=== PATIENT | female | born 1995 ===

== ENCOUNTER 2017-12-17 20:31 | Emergency (ER) | payer OTHER ==
--- NOTE | 2017-12-17 21:02 | UC ---
Upper Extremity HPI - HPI Summary HPI Summary: 22 y/o female presents to the urgent care c/o left pinky finger pain and laceration s/p jamming her finger w/ a door around 2000PM today. Pt has small laceration over the nail. Bleeding stopped w/ pressure. She is allergic to Sodium Benzote, so she rather wait and take some Tylenol Po she has at home. Pt is not UTD w/ the Tetanus shot. I spoke to mother over the phone and she is also unsure of Tetanus status. Pain is 6/10, but can move the finger w/o any difficulty. Pt feel mild numbness at the tip of the finger. Pt denies fever, SOB , chest pain, abdominal pain, N/V/D - History of Current Complaint Chief Complaint: UCUpperExtremity Stated Complaint: FINGER INJURY Time Seen by Provider: 12/17/17 20:47 Hx Obtained From: Patient Hx Last Menstrual Period: 12/11/17 ?: No Onset/Duration: Gradual Onset Severity Initially: Moderate Severity Currently: Moderate Pain Intensity: 6 Pain Scale Used: 0-10 Numeric Location Of Pain: Is Discrete @ - leeft small finger Character: Throbbing Aggravating Factor(s): Movement, Lifting, Other - touch Alleviating Factor(s): Rest Associated Signs And Symptoms: Positive: Numbness/Tingling - at the tip of the finger, Other - laceration over the nail Related History: Dominant Hand Right - Risk Factors Non-Orthopedic Risk Factor: Negative DVT Risk Factors: Negative Septic Arthritis Risk Factor: Negative - Allergies/Home Medications Allergies/Adverse Reactions: Allergies Allergy/AdvReac Type Severity Reaction Status Date / Time sodium benzoate Allergy Severe Vomiting Verified 12/17/17 20:49 Home Medications: Home Medications Norgestrel-Ethinyl Estradiol [Cryselle-28 Tablet] 1 tab PO DAILY 12/17/17 [ History Confirmed 12/17/17] PMH/Surg Hx/FS Hx/Imm Hx Previously Healthy: Yes - Pt denies PMHX - Surgical History Surgery Procedure, Year, and Place: hernia - Family History Known Family History: Positive: None - Pt denies FMHX - Social History Occupation: Employed Full-time Lives: With Family Alcohol Use: Daily Substance Use Type: None Smoking Status (MU): Never Smoked Tobacco Review of Systems Constitutional: Negative Skin: Bruising - left pinky finger and laceration over the nail Eyes: Negative ENT: Negative Respiratory: Negative Cardiovascular: Negative Gastrointestinal: Negative Genitourinary: Negative Motor: Negative Neurovascular: Negative Musculoskeletal: Other: - left pinky pain s/p injury Neurological: Negative Psychological: Negative Is Patient Immunocompromised?: No All Other Systems Reviewed And Are Negative: Yes Physical Exam - Summary Physical Exam Summary: Vital Signs Reviewed: Yes General: Well-Appearing, No Pain Distress, Well-Nourished female w/o any apparent distress Eyes: Positive: Conjunctiva Clear - PERRLA, EOMI ENT: Positive: Normal ENT inspection, Hearing grossly normal, Pharynx normal, TMs normal, Uvula midline Neck: Positive: Supple, Nontender, No Lymphadenopathy Respiratory: Positive: Chest non-tender, Lungs clear, Normal breath sounds, No respiratory distress Cardiovascular: Positive: RRR, No Murmur, Pulses Normal, Brisk Capillary Refill Abdomen Description: Positive: Nontender, No Organomegaly, Soft. Negative: CVA Tenderness (R), CVA Tenderness (L) Bowel Sounds: Positive: Present Musculoskeletal: Positive: Strength Intact, Other: Neurological Exam: Normal Musculoskeletal: Positive: LF hand is without obvious asymmetry or deformity when compared to the R hand. LF #5th phalanx with mild ecchymosis and swelling at the tip to the phalanx and nail w/ a discrete linear laceration at the mid area w/ mild bleeding about 0.4cm in size. .Tender to palpation. Phalanx w/o any obvious deformity. No bony crepitus. FROM of all phalanges . Motor/ sensory function of ulnar, radial, median nerves intact. Ulnar and radial pulses intact. Capillary refill intact. Psychological Exam: Normal Skin Exam: Normal Triage Information Reviewed: Yes Vital Signs: Initial Vital Signs Temp 98.6 F 12/17/17 20:40 Pulse 83 12/17/17 20:40 Resp 18 12/17/17 20:40 BP 131/92 12/17/17 20:40 Pulse Ox 99 12/17/17 20:40 Upper Extremity Course/Dx - Course Course Of Treatment: 22 y/o female presents to the urgent care c/o left pinky finger pain and laceration s/p jamming her finger w/ a door around 2000PM today. Pt has small laceration over the nail. Bleeding stopped w/ pressure. She is allergic to Sodium Benzote, so she rather wait and take some Tylenol PO she has at home. Pt is not UTD w/ the Tetanus shot. I spoke to mother over the phone and she is also unsure of Tetanus status. Pain is 6/10, but can move the finger w/o any difficulty. Pt feel mild numbness at the tip of the finger. Pt denies fever, SOB, chest pain, abdominal pain, N/V/D. Hx obtained. Left # fifth digit X-ray ordered: impression: There was no fracture, dislocation, soft tissue swelling or FB noted. Probably a finger sprain. Nail laceraion irrigated w/ sterile water and bleeding stopped w/ pressure. wound cleaned w/ iodine swabs. Skin adhesive and 2 steri-sptrips applied to close laceration. Wound covered w/ a sterile gauze. Left 5th Finger imobilzed w/ a finger splint and body tape with the #4 digit. Pt advised RICE and take Tylenol PO for pain. F/u with Orthopedic DR Melendez if not improvement of symptoms. Pt given Tetanus vaccine by nurse. Pt tolerated well IM inj.Pt's BP is elevated today advised to decrease salt in diet, monitor BP and f/u with PCP for further management. Pt understood and agreed with D/C instructions. - Differential Dx/Diagnosis Differential Diagnosis/HQI/PQRI: Contusion, Fracture (Closed), Laceration, Strain, Sprain Provider Diagnoses: 1- Left 5th phalanx pain s/p injury. 2- Left fifth nail laceration s/p injury. 3- elevated BP w/o Hx of HTN Discharge - Sign-Out/Discharge Documenting (check all that apply): Discharge/Admit/Transfer - D/C home - Discharge Plan Condition: Stable Disposition: HOME Patient Education Materials: Finger Sprain (ED), Low-Sodium Diet (ED), Steristrips (ED) Referrals: [facility] [place] PHYSICIAN REFERRAL [Outside] - 1 Week Omar Melendez MD [Medical Doctor] - 1 Week Additional Instructions: 1-Please take Tylenol PO you have at home q6-8hrs prn to alleviate pain and swelling. Keep wound dry and clean if you see any signs of infection pleas return to the urgent care for further management. 2-Please keep your finger immobilized with the splint. 3- Please f/u with Orthopedic or your PCP in 1 week is not improvement of symptoms for further evaluation and treatment. 4-Your BP is elevated today. please decrease salt in your diet, monitor BP and if it continues to be elevated please f/u with your PCP for further management - Billing Disposition and Condition Condition: STABLE Disposition: HOME
[2017-12-17] MEDS ORDERED: Tetan/Diph/Pertus SYR(Tdap)* 0.5 ML SYR(BOOSTRIX) use SYR IM ONE (21:04)
--- NOTE | 2017-12-17 21:36 | RAD ---
INDICATION: Left small finger injury COMPARISON: None. TECHNIQUE: 3 views of the left small finger were obtained. FINDINGS: The bones are normal alignment. Joint spaces appear maintained. No fracture is seen. IMPRESSION: NO EVIDENCE FOR FRACTURE, IF THE PATIENT'S SYMPTOMS PERSIST RECOMMEND FOLLOW-UP IMAGING.
== END 2017-12-17 22:00 | disposition home or self-care (01) ==
LOC: UCEAST 20:31
DX: Z88.8 Allergy status to other drugs, medicaments and biological substances (principal); S61.317A Laceration without foreign body of left little finger with damage to nail, initial encounter; W23.0XXA Caught, crushed, jammed, or pinched between moving objects, initial encounter; Y93.9 Activity, unspecified; Y92.9 Unspecified place or not applicable
CPT/HCPCS: 73140; 90471; 90715; 99203; G0463